=== PATIENT | female | born 1965 ===

== ENCOUNTER 2022-09-28 15:40 | Emergency (ER) | payer OTHER ==
[~2022-09-28] VITALS: Ht 170.2 cm; Wt 74.8 kg
[~2022-09-28 15:40] MED LIST: CARDIZEM CD120 MG PO; FOLGARD TABLET1 EACH PO; FOLIC ACID1 MG PO; INTESTINEX680 MG PO; METROTEXATE PO; NEUROTIN PO; OXYC1TAB9 PO; PAMELOR50 M1 PO; PNEU16DI2; SYNTHROID100 MCG PO; SYNTHROID88 MCG PO; TRICOR145 MG PO; ULTRAM50 MG PO
[2022-09-28] MEDS ORDERED: OMEPRAZOLE MAGN20 MG PO (22:26)
[2022-09-28] MEDS ORDERED: LEVSIN/SL0.125 MG SL (22:26)
[2022-09-28] MEDS ORDERED: METRONIDAZOLE500 MG PO (22:26)
== END 2022-09-28 22:34 | disposition home or self-care (01) ==
LOC: ER 15:40
DX: K52.9 Noninfective gastroenteritis and colitis, unspecified (principal); Z88.1 Allergy status to other antibiotic agents; Z88.2 Allergy status to sulfonamides; Z79.891 Long term (current) use of opiate analgesic; Z98.890 Other specified postprocedural states; Z20.822 Contact with and (suspected) exposure to COVID-19

== ENCOUNTER 2024-12-06 21:56 | Inpatient (IN) | payer OTHER ==
[~2024-12-06] VITALS: Ht 152.4 cm; Wt 87.1 kg
[~2024-12-06 21:56] MED LIST changes: +LEVSIN/SL0.125 MG SL; +METRONIDAZOLE500 MG PO; +OMEPRAZOLE MAGN20 MG PO
[2024-12-06] MEDS ORDERED: 0.9 % SODIUM CHLORIDE 1,000 ML IV ONE (23:00)
[2024-12-06] MEDS ORDERED: KETOROLAC TROMETHAMINE 60 MG VIAL IM ONE ×2 (23:00→23:10)
[2024-12-06] MEDS ORDERED: FAMOtidine 10 MG/ML (4ML VIAL) IV ONE (23:00)
[2024-12-06] MEDS ORDERED: ONDANSETRON HCL 2 MG/ML VIAL IV ONE (23:00)
[2024-12-06] MEDS ORDERED: ONDANSETRON HCL 2 MG/ML VIAL ONE (23:10)
[2024-12-06] MEDS ORDERED: FAMOTIDINE/PF 20 MG/2 ML VIAL ONE (23:10)
[2024-12-06 23:58] LABS: HEMATOCRIT 42.1 % (36.0-45.00); HEMOGLOBIN 14.5 g/dL (12.0-15.00); MEAN CELL VOLUME 91.4 fL (80.00-100.00); MEAN CORPUSCULAR HEMOGLOBIN 31.6 pg (27.00-32.0); MEAN CORPUSCULAR HGB CONC 34.5 g/dl (32.0-36.0); PLATELET COUNT 326 K/uL (150-450); RED CELL DISTRIBUTION WIDTH 13.7 % (11.5-14.5)
[2024-12-07 01:02] LABS: INR 0.94; PARTIAL THROMBOPLASTIN TIME 25.9 SECONDS (22.0-34.0); PROTHROMBIN TIME 10.3 SECONDS (9.0-11.5)
[2024-12-07 01:06] LABS: ALBUMIN 4.3 gm/dL (3.4-5.0); BILIRUBIN TOTAL 0.51 mg/dL (0.3-1.2); CALCIUM 9.4 mg/dL (8.5-10.1); CREATININE SERUM 0.97 mg/dL (0.55-1.02); GFR 58.78; GLOBULINA 4.1 G/DL (2.4-3.5); POTASSIUM 4.37 mEq/L (3.5-5.1); TOTAL PROTEIN 8.4 gm/dL (6.4-8.2)
[2024-12-07] MEDS ORDERED: PROMETHAZINE HCL 50 MG/ML AMPUL IM STA (03:45)
[2024-12-07] MEDS ORDERED: MORPHINE SULFATE 4 MG/ML VIAL IV STA (03:45)
[2024-12-07] MEDS ORDERED: PROMETHAZINE HCL 50 MG/ML AMPUL IM ONE (03:51)
[2024-12-07] MEDS ORDERED: FAMOTIDINE/PF 20 MG/2 ML VIAL IV PUSH STA (08:18)
[2024-12-07 09:16] LABS: PH,URINE 7.5 (5.0-8.0); URINE APPEARANCE Clear; URINE BILIRRUBIN Negative (NEGATIVE); URINE BLOOD Negative; URINE COLOR Yellow; URINE GLUCOSE Negative (NEGATIVE); URINE KETONE Negative (NEGATIVE); URINE LEUKOCYTE Negative; URINE NITRATE Negative; URINE PROTEIN Negative (NEGATIVE); URINE UROBILINOGEN 0.2 E.U./dl
[2024-12-07 09:17] LABS: URINE BACTERIA 4.8 uL (0.0-1933); URINE EPITHELIAL CELLS 4.1 uL (0.0-38.8); URINE RBC 36.9 uL (0.0-20.8); URINE WBC 3.7 uL (0.0-23.2)
[2024-12-07] MEDS ORDERED: MORPHINE SULFATE 4 MG/ML VIAL IV ONE (12:45)
[2024-12-07] MEDS ORDERED: MORPHINE SULFATE 4 MG/ML CARTRIDGE IV PRN (16:15)
[2024-12-07] MEDS ORDERED: ONDANSETRON HCL 4 MG in DEXTROSE 5 % IN WATER 50 ML IV PRN (16:15)
[2024-12-07] MEDS ORDERED: SODIUM CHLORIDE 0.45 % 1,000 ML IV SCH (16:15)
[2024-12-07] MEDS ORDERED: PIPERACILLIN/TAZOBACTAM SODIUM 3.375 GM VIAL IV ONE (16:41)
[2024-12-07 17:05] VITALS: BP 116/71
[2024-12-07] MEDS ORDERED: PIPERACILLIN/TAZOBACTAM SODIUM 3.375 GM in DEXTROSE 5 % IN WATER 100 ML IV SCH (18:00)
[2024-12-07 19:09] VITALS: BP 127/53; O2SAT 95
[2024-12-07] MEDS ORDERED: FAMOTIDINE/PF 20 MG in 0.9 % SODIUM CHLORIDE 100 ML IV SCH (21:00)
[2024-12-08 01:09] VITALS: BP 140/73; O2SAT 96
[2024-12-08 08:00] VITALS: BP 122/67; O2SAT 95
[2024-12-08 16:10] VITALS: BP 146/77; O2SAT 95
[2024-12-08] MEDS ORDERED: AA 4.25%/CAL/LYTES/DEXT 5% 1,000 ML PERIFERAL SCH (17:00)
[2024-12-08] MEDS ORDERED: AMINO ACIDS 4.25%/DEXTROSE 10% 1,000 ML CENTRAL SCH (17:00)
[2024-12-08] MEDS ORDERED: ENOXAPARIN SODIUM 40 MG/0.4 ML SYRINGE SUBCUTANEO SCH (17:00)
[2024-12-09 01:13] VITALS: BP 135/83; O2SAT 100
[2024-12-09 07:36] LABS: HEMATOCRIT 37.1 % (36.0-45.00); HEMOGLOBIN 13.1 g/dL (12.0-15.00); MEAN CELL VOLUME 90.6 fL (80.00-100.00); MEAN CORPUSCULAR HGB CONC 35.4 g/dl (32.0-36.0); PLATELET COUNT 262 K/uL (150-450); RED BLOOD COUNT 4.09 M/uL (4.00-6.00); RED CELL DISTRIBUTION WIDTH 13.3 % (11.5-14.5)
[2024-12-09 08:00] VITALS: BP 140/68; O2SAT 96
[2024-12-09 08:31] LABS: ALBUMIN 3.2 gm/dL (3.4-5.0); BILIRUBIN TOTAL 0.68 mg/dL (0.3-1.2); CALCIUM 8.3 mg/dL (8.5-10.1); CREATININE SERUM 0.61 mg/dL (0.55-1.02); GFR 100.39; GLOBULINA 2.9 G/DL (2.4-3.5); MAGNESIUM 2.1 mg/dL (1.8-2.4); PHOSPHOROUS 2.9 mg/dL (2.5-4.9); POTASSIUM 3.94 mEq/L (3.5-5.1); TOTAL PROTEIN 6.1 gm/dL (6.4-8.2)
[2024-12-09 08:42] LABS: C-REACTIVE PROTEIN 1.14 MG/DL (0.00-0.29)
[2024-12-09 08:43] LABS: TSH 29.7 uIU/mL (0.358-3.74)
[2024-12-09] MEDS ORDERED: LEVOTHYROXINE SODIUM 100 MCG/VIAL VIAL IV SCH (09:00)
[2024-12-09] MEDS ORDERED: DIATRIZOATE MEGLUMINE, SODIUM 30 ML BOTTLE PO NR (11:45)
[2024-12-09 16:32] VITALS: BP 123/63; O2SAT 97
[2024-12-10 01:50] VITALS: BP 138/73; O2SAT 97
[2024-12-10 08:00] VITALS: BP 123/67; O2SAT 96
[2024-12-10 16:33] VITALS: BP 134/66; O2SAT 98
[2024-12-11 00:45] VITALS: BP 140/77; O2SAT 97
[2024-12-11 06:55] LABS: HEMATOCRIT 37.9 % (36.0-45.00); HEMOGLOBIN 13.2 g/dL (12.0-15.00); MEAN CELL VOLUME 91.9 fL (80.00-100.00); MEAN CORPUSCULAR HEMOGLOBIN 32.1 pg (27.00-32.0); MEAN CORPUSCULAR HGB CONC 34.9 g/dl (32.0-36.0); PLATELET COUNT 265 K/uL (150-450); RED BLOOD COUNT 4.13 M/uL (4.00-6.00); RED CELL DISTRIBUTION WIDTH 13.6 % (11.5-14.5)
[2024-12-11 07:09] LABS: INR 1.02; PARTIAL THROMBOPLASTIN TIME 26.1 SECONDS (22.0-34.0); PROTHROMBIN TIME 11.1 SECONDS (9.0-11.5)
[2024-12-11 07:21] LABS: ALBUMIN 3.4 gm/dL (3.4-5.0); BILIRUBIN TOTAL 0.35 mg/dL (0.3-1.2); BILIRUBIN,CONJUGATED 0.11 mg/dL (0.0-0.2); BILIRUBIN,UNCONJUGATED 0.24 mg/dL (0.0-0.6); CREATININE SERUM 0.61 mg/dL (0.55-1.02); GFR 100.39; GLOBULINA 3.2 G/DL (2.4-3.5); POTASSIUM 4.01 mEq/L (3.5-5.1); TOTAL PROTEIN 6.6 gm/dL (6.4-8.2)
[2024-12-11 08:00] VITALS: BP 135/61; O2SAT 98
[2024-12-11 08:44] LABS: UREA CLEARANCE 29.6 ML/MIN
[2024-12-11] MEDS ORDERED: LEVSIN/SL0.125 MG SL (12:32)
[2024-12-11] MEDS ORDERED: INTESTINEX680 M1 PO (12:33)
[2024-12-11] MEDS ORDERED: PEPCID AC20 MG PO (12:33)
[2024-12-11 16:00] VITALS: BP 131/81; O2SAT 98
[2024-12-11] MEDS ORDERED: LEVOTHYROXINE SODIUM 100 MCG/VIAL VIAL IV SCH (17:00)
== END 2024-12-12 08:40 | disposition home or self-care (01) | DRG 390 ==
LOC: ER 21:56 → SURH 12-07 18:09
PROVIDERS: General Practice; Internal Medicine Geriatric Medicine; ADMIT Surgery; ATTEND Surgery
PROC: BW21YZZ Computerized Tomography (CT Scan) of Abdomen and Pelvis using Other Contrast (ICD-10-PCS; 2024-12-06)
PROC: 02HV33Z Insertion of Infusion Device into Superior Vena Cava, Percutaneous Approach (ICD-10-PCS; principal; 2024-12-08)
PROC: BW21YZZ Computerized Tomography (CT Scan) of Abdomen and Pelvis using Other Contrast (ICD-10-PCS; 2024-12-09)
DX: K56.699 Other intestinal obstruction unspecified as to partial versus complete obstruction (principal); E03.9 Hypothyroidism, unspecified; G47.33 Obstructive sleep apnea (adult) (pediatric); K52.9 Noninfective gastroenteritis and colitis, unspecified

== ENCOUNTER 2025-06-19 09:45 | Day surgery (SDC) | payer OTHER ==
[2025-06-12 12:44] VITALS: BP 128/78
[~2025-06-19] VITALS: Ht 170.2 cm; Wt 87.1 kg
[~2025-06-19 09:45] MED LIST changes: +INTESTINEX680 M1 PO; +PEPCID AC20 MG PO
[2025-06-19] MEDS ORDERED: CLINDAMYCIN PHOSPHATE 150 MG/ML (900mg) IV ONE (17:15)
[2025-06-19] MEDS ORDERED: ISOPROPYL ALCOHOL 30 ML OUNCE TOP ONE (17:15)
[2025-06-19] MEDS ORDERED: MORPHINE SULFATE 4 MG/ML VIAL IV ONE (18:15)
== END 2025-06-19 20:15 | disposition home or self-care (01) ==
LOC: CIR.AMB 09:45
PROVIDERS: ATTEND Orthopaedic Surgery Hand Surgery
DX: M65.331 Trigger finger, right middle finger (principal); M65.341 Trigger finger, right ring finger; M65.351 Trigger finger, right little finger; Z88.2 Allergy status to sulfonamides